=== PATIENT | male | born 1975 | race Caucasian/White ===

== ENCOUNTER → 2023-01-25 | Outpatient (CLI) | payer OTHER ==
[~2023-01-25] MED LIST: CEPH500 PO; ESOM20 PO; FURO20 PO; HYDACE5 PO; NAPR500 PO; POTA10T PO; PRILOSEC; Permethrin60 GM TOP; SULTRIDS PO
== END | disposition home or self-care (01) ==
LOC: PLD 07:49 → LAB SHORT 07:49
DX: L98.499 Non-pressure chronic ulcer of skin of other sites with unspecified severity (principal)
CPT/HCPCS: 88305; 88312